=== PATIENT | female | born 1950 | race Caucasian/White ===

== ENCOUNTER 2020-03-08 08:56 | Inpatient (IN) | payer OTHER, MEDICAID, SELFPAY ==
[~2020-03-08] VITALS: Ht 157.5 cm; Wt 72.6 kg
[2020-03-08 08:56] VITALS: BP_SYST 136
--- NOTE | 2020-03-08 08:56 | NUR ---
PLACED IN BED 8, TRIAGED AT BEDSIDE
--- NOTE | 2020-03-08 09:00 | NUR ---
ER DR. PATINO EVALUATING PT AT THE BEDSIDE
--- NOTE | 2020-03-08 09:05 | NUR ---
PT BIBA FOR SOB, COUGH AND LOW O2 SAT AT HOME STARTING AROUND 0800. PT LIVES WITH FAMILY AND TESTED POSITIVE FOR COVID-19 ON 03/02/20. HX OF COPD, HTN, DM AND PER DAUGHTER A CARDIAC CONDITION. PT USES CPAP AT HOME. PT PRESENTS WITH NON-REBREATHER @ 15L O2 SAT ON ARRIVAL IS 95%. PT IS AAOX3
[2020-03-08] MEDS ORDERED: ALBMDI INH (09:18)
[2020-03-08] MEDS ORDERED: GLU850 PO (09:18)
[2020-03-08] MEDS ORDERED: OMEP20CA15 PO (09:18)
[2020-03-08] MEDS ORDERED: ALLO300T2 PO (09:18)
[2020-03-08] MEDS ORDERED: MECL-97 PO (09:18)
[2020-03-08] MEDS ORDERED: AMLO5TAB4 PO (09:18)
[2020-03-08] MEDS ORDERED: SIMV10TA2 PO (09:18)
[2020-03-08] MEDS ORDERED: AMI200 PO (09:18)
[2020-03-08] MEDS ORDERED: MONT10TA27 PO (09:18)
[2020-03-08] MEDS ORDERED: SYN50 PO (09:18)
--- NOTE | 2020-03-08 09:18 | NUR ---
Medication reconciliation completed with information provided by PT MEDICATION BOTTLES. Any prior medication reconciliation on file was reviewed and corrected.
--- NOTE | 2020-03-08 09:20 | NUR ---
LAB AT THE BEDSIDE FOR BLOOD DRAW
--- NOTE | 2020-03-08 09:25 | NUR ---
SW DAUGHTER LINUS NOLEN
--- NOTE | 2020-03-08 09:30 | NUR ---
PORTABLE X-RAY AT THE BEDSIDE
[2020-03-08 09:55] LABS: BASOPHILS # (AUTO) 0.1 K/uL (0.0-0.2); HEMOGLOBIN 12.8 g/dL (12.0-16.0); LYMPHOCYTES # (AUTO) 1.3 K/uL (1.0-5.5); MEAN CORPUSCULAR HGB CONC 33 % (32-36); MEAN CORPUSCULAR VOLUME 101 fL (79.0-98.0); RED CELL DISTRIBUTION WIDTH 14.5 % (9.0-15.0)
[2020-03-08 09:56] LABS: CALCIUM 8.6 mg/dL (8.4-11.0); CREATININE 1.89 mg/dL (0.55-1.30)
[2020-03-08 10:02] LABS: BASOPHILS % (AUTO) 1.1 % (0.0-2.0); HEMATOCRIT 39.2 % (36-48); LYMPHOCYTES % (AUTO) 15.7 % (20.5-51.5); MEAN CORPUSCULAR HEMOGLOBIN 33 pg (27-31); MONOCYTES # (AUTO) 0.4 K/uL (0.0-1.0); MONOCYTES % (AUTO) 5.2 % (1.7-9.3); NEUTROPHILS # (AUTO) 6.3 K/uL (1.8-7.7)
[2020-03-08 10:02] LABS: INR 1.1 (0.8-1.2)
[2020-03-08 10:07] LABS: ALBUMIN 2.9 g/dL (3.4-4.8); TOTAL BILIRUBIN 0.5 mg/dL (0.0-1.0)
[2020-03-08 10:16] LABS: C-REACTIVE PROTEIN QUANT 10.3 mg/dL (0-0.5)
--- NOTE | 2020-03-08 10:16 | NUR ---
COVID SWAB DONE AND SENT TO LAB
[2020-03-08 10:23] LABS: PLATELET COUNT (AUTO) 122 K/uL (130-430)
--- NOTE | 2020-03-08 10:42 | NUR ---
PT ABLE TO VOID, SPECIMEN COLLECTED AND SENT TO LAB
[2020-03-08] MEDS ORDERED: PIPERACILLIN/TAZOBACTAM 3.375 GM/VIAL (ZOSYN) IV ONE (10:43)
[2020-03-08 10:44] LABS: BILIRUBIN,URINE NEGATIVE (NEGATIVE); BLOOD, URINE 2+ (NEGATIVE); CLARITY/URINE SL CLOUDY (CLEAR); COLOR,URINE YELLOW (YELLOW); GLUCOSE,URINE NEGATIVE (NEGATIVE); KETONES,URINE TRACE (NEGATIVE); LEUKOCYTE ESTERASE ,URINE TRACE (NEGATIVE); NITRITE, URINE POSITIVE (NEGATIVE); PH,URINE 5.5 (5.0-8.0); PROTEIN URINE 2+ (NEGATIVE); UROBILINOGEN,URINE 0.2 (0.2-1.0)
[2020-03-08] MEDS ORDERED: VANCOMYCIN HCL 1,000 MG in NS 250 ML IV ONE (10:45)
[2020-03-08] MEDS ORDERED: PIPERACILLIN/TAZO 3.375 GM in NS 50 ML IV ONE (10:45)
[2020-03-08] MEDS ORDERED: NS 500 ML IV ONE (10:45)
[2020-03-08 11:03] LABS: BACTERIA,URINE MANY /HPF (None Seen); MUCUS,URINE 1+ /LPF (None Seen)
[2020-03-08] MEDS ORDERED: VANCOMYCIN HCL 1000 MG/VIAL IV ONE (11:21)
[2020-03-08] MEDS ORDERED: ENOXAPARIN SODIUM 60 MG/0.6 ML SYRINGE SUBCUT ONE (13:30)
[2020-03-08] MEDS ORDERED: ENOXAPARIN SODIUM 40 MG/0.4 ML SYRINGE SUBCUT SCH (14:00)
[2020-03-08] MEDS ORDERED: DOCUSATE SODIUM 100 MG CAPSULE PO PRN (14:00)
[2020-03-08] MEDS ORDERED: POTASSIUM CHLORIDE 20 MEQ TAB.PRT.SR PO PRN (14:00)
[2020-03-08] MEDS ORDERED: MAGNESIUM SULFATE 50 ML IV PRN (14:00)
[2020-03-08] MEDS ORDERED: ACETAMINOPHEN 325 MG TABLET PO PRN (14:00)
[2020-03-08] MEDS ORDERED: LORazepam 2 MG/ML VIAL IVP PRN (14:00)
[2020-03-08] MEDS ORDERED: MUPIROCIN 2% TOPICAL OINTMENT 22 GM NS PRN (14:00)
[2020-03-08] MEDS ORDERED: MORPHINE 2 MG/ML INJ. SYRINGE IVP PRN ×2 (14:00)
[2020-03-08] MEDS ORDERED: ONDANSETRON HCL 4 MG/2 ML VIAL IVP PRN (14:00)
[2020-03-08] MEDS ORDERED: DEXTROSE 50% JECT 50 ML DISP.SYRIN IVP PRN (14:00)
[2020-03-08] MEDS ORDERED: ZOLPIDEM TARTRATE 5 MG TABLET PO PRN (14:00)
[2020-03-08] MEDS: NACL 0.9% 1,000 ML IV SCH (14:19)
[2020-03-08] MEDS ORDERED: AZITHROMYCIN 500 MG in NS 250 ML IV ONE (14:30)
[2020-03-08] MEDS ORDERED: cefTRIAXone 1 GM VIAL ONE (14:43)
--- NOTE | 2020-03-08 15:15 | NUR ---
ASSUMED CARE OF PT.
--- NOTE | 2020-03-08 15:15 | NUR ---
REPORT GIVEN TO REJI GUTIERREZ FOR CONTINUING CARE
--- NOTE | 2020-03-08 15:24 | NUR ---
CONSULT: KENNEDI MCCRARY SPOKE WITH REBECCA REASON FOR CONSULT: COVID PNA
--- NOTE | 2020-03-08 15:29 | NUR ---
CONSULT: PAGED DR MONTEMAYOR REASON FOR CONSULT- COVID PNA
[2020-03-08] MEDS ORDERED: DECADRON 4 MG TABLET PO ONE (15:30)
[2020-03-08] MEDS ORDERED: ASCORBIC ACID 500 MG TABLET PO ONE (15:30)
[2020-03-08] MEDS ORDERED: CHOLECALCIFEROL (VITAMIN D3) 2,000 UNIT TABLET PO ONE (15:30)
[2020-03-08] MEDS ORDERED: cefTRIAXone 1 GM in D5W 50 ML IV ONE (15:30)
[2020-03-08] MEDS ORDERED: AZITHROMYCIN 500 MG/VIAL (ZITHROMAX) IV ONE (15:57)
--- NOTE | 2020-03-08 16:00 | NUR ---
PT. RESTING IN BED IN SEMI FOWLERS POSITION WITH BOTH SIDE RAILS UP
[2020-03-08] MEDS ORDERED: *LOVENOX 1MG/KG Q12H/PHARMACY XX ONE (16:30)
[2020-03-08] MEDS: MONTELUKAST 10 MG TABLET PO SCH (16:51)
--- NOTE | 2020-03-08 17:00 | NUR ---
CURRENT ACCU CHECK IS 110.
--- NOTE | 2020-03-08 17:00 | NUR ---
PT. NEEDS TO BE REMINDED TO KEEP HER O2 MASK ON PT. PLACED IN HIGH FOWLERS POSITION TO KEEP O2 SATURATION ABOVE 90% PT. TOLERATING WELL WITH BOTH SIDE RAILS UP
--- NOTE | 2020-03-08 18:36 | NUR ---
CONVALSECENT PLASMA CONSENT OBTAINED FROM THE PT'S DAUGHTER
[2020-03-08] MEDS: ALBUTEROL MDI INHALATION 8 GM INH INH SCH (19:00)
--- NOTE | 2020-03-08 21:33 | NUR ---
FFP BEGAN ON PT. VERIFIED AT BEDSIDE WITH REJI GUTIERREZ
--- NOTE | 2020-03-08 21:48 | NUR ---
PT. TOLERATING FFP INFUSION WELL WITH NO REACTION VITALS STABLE AND WNL
--- NOTE | 2020-03-08 22:33 | NUR ---
PT. TOLERATING FFP INFUSION VITALS WNL
--- NOTE | 2020-03-09 00:08 | NUR ---
1 UNIT FFP TRANSFUSION COMPLETE PT. TOLERATED WELL IN BED WITH BOTH SIDE RAILS UP IN LOWEST POSITION
--- NOTE | 2020-03-09 00:32 | NUR ---
FFP UINT 2 OF 2 STARTED PT. TOLERATING WELL WILL CONTINUE TO MONITOR
--- NOTE | 2020-03-09 00:48 | NUR ---
PT. TOLERATING UNIT 2 OF 2 OF FFP TRANSFUSION VITALS WNL PT. IN BED IN LOWEST POSITION WIHT SIDE RAILS UP WILL CONTINUE TO MONITOR
--- NOTE | 2020-03-09 02:00 | NUR ---
Ava balderas in [facility] - 03/09/20 at 1439 by [email or web address] PT PROVED WITH LUNCH TRAY, EATING IN BED
--- NOTE | 2020-03-09 02:43 | NUR ---
UNIT 2 OF 2 FFP COMPLETE PT. TOLERATED WELL ADN VITALS SIGNS WNL
--- NOTE | 2020-03-09 03:02 | NUR ---
BEDSIDE PT. REPORT GIVEN TO SOFTWARE IMPLEMENTATION PROJECT MANAGER MAY
--- NOTE | 2020-03-09 04:48 | NUR ---
Patient resting quietly. No acute distress noted.
--- NOTE | 2020-03-09 06:47 | NUR ---
BS 181, given 2 unit sc and provided bedside commode.
--- NOTE | 2020-03-09 07:09 | NUR ---
Care of patient endorsed to REJI Davila.
--- NOTE | 2020-03-09 07:11 | NUR ---
REPORT RECEIVED FROM REJI PINTO FOR CONTINUING CARE
[2020-03-09] MEDS: LEVOTHYROXINE SODIUM 0.05 MG TABLET PO SCH (07:29)
[2020-03-09] MEDS: NACL 0.9% 1,000 ML IV SCH ×2 (07:30→18:56)
[2020-03-09] MEDS: ALBUTEROL MDI INHALATION 8 GM INH INH SCH ×2 (07:30→18:57)
[2020-03-09] MEDS ORDERED: AZITHROMYCIN 250 MG TABLET PO SCH (09:00)
[2020-03-09] MEDS ORDERED: ENOXAPARIN SODIUM 40 MG/0.4 ML SYRINGE SUBCUT SCH (09:00)
--- NOTE | 2020-03-09 09:00 | NUR ---
PT PROVIDED WITH BREAKFAST TRAY,EATING IN BED
[2020-03-09 09:01] LABS: CALCIUM 8.3 mg/dL (8.4-11.0); CREATININE 1.42 mg/dL (0.55-1.30); POTASSIUM 4.8 mmol/L (3.5-5.1)
[2020-03-09 09:15] LABS: C-REACTIVE PROTEIN QUANT 8.2 mg/dL (0-0.5)
[2020-03-09] MEDS: AMIODARONE HCL 200 MG TABLET PO SCH (09:58)
[2020-03-09] MEDS: ALLOPURINOL 300 MG TABLET (ZYLOPRIM) PO SCH (09:59)
[2020-03-09] MEDS: ASCORBIC ACID 500 MG TABLET PO SCH (09:59)
[2020-03-09] MEDS: amLODIPine BESYLATE 5 MG TABLET PO SCH (10:00)
[2020-03-09] MEDS: SIMVASTATIN 10 MG TABLET PO SCH (10:01)
[2020-03-09] MEDS: CHOLECALCIFEROL (VITAMIN D3) 2,000 UNIT TABLET PO SCH (10:01)
--- NOTE | 2020-03-09 14:00 | NUR ---
PT PROVIDED WITH LUNCH TRAY,EATING IN BED
[2020-03-09] MEDS: DECADRON 4 MG TABLET PO SCH (16:22)
[2020-03-09] MEDS: ENOXAPARIN SODIUM 80 MG/0.8 ML SYRINGE SUBCUT SCH (16:24)
[2020-03-09] MEDS: cefTRIAXone 1 GM in D5W 50 ML IV SCH (16:25)
[2020-03-09] MEDS: INSULIN LISPRO SLIDING SCALE 100 UNITS/ML VIAL (humaLOG) SUBCUT PRN ×2 (17:27→21:47)
--- NOTE | 2020-03-09 17:30 | NUR ---
PT PROVIDED WITH DINNER TRAY
[2020-03-09] MEDS: MONTELUKAST 10 MG TABLET PO SCH (18:55)
[2020-03-09] MEDS: AZITHROMYCIN 500 MG in NS 250 ML IV SCH (18:56)
--- NOTE | 2020-03-09 19:26 | NUR ---
REPORT GIVEN TO REJI HARVEY FOR CONTINUING CARE
--- NOTE | 2020-03-09 20:07 | NUR ---
Patient will be admitted to care of Dr merino. Admitted to tele unit. Will go to room 124a. Belongings list completed. Complete and up to date summary report printed. SBAR report to be given at bedside with opportunity for questions.
--- NOTE | 2020-03-09 20:30 | NUR ---
ADMISSION NOTE: Received patient from ER via gurney. Patient admitted with diagnosis of shortness of breath and cough. Patient is awake, alert, oriented X 3. Patient oriented to hospital room, call light, toileting, pain management and safety-teach back done.Personal belongings checked and Belongings List documented. Call light within reach.
--- NOTE | 2020-03-09 21:30 | NUR ---
MED PASS: SCHEDULED MED GIVEN TO PATIENT. TOLERATED WELL. BLOOD GLUCOSE IS 152 MG/dL. PATIENT REFUSED INSULIN. EDUCATED PATIENT REGARDING S/S HYPO AND HYPERGLYCEMIA. CALL LIGHT IS WITHIN PATIENT REACH. SAFETY AND FALL PRECAUTIONS IN PLACE. INSTRUCTED PATIENT TO USE CALL LIGHT FOR AEROSPACE ASSEMBLER. WILL MONITOR.
[2020-03-09 22:34] VITALS: BP_SYST 132
--- NOTE | 2020-03-09 23:00 | NUR ---
RN ROUNDS: PATIENT ASSISTED WITH BEDPAN. NO S/S RESPIRATORY DISTRESS NOTED AT THIS TIME. WILL MONITOR PATIENT FOR ANY CHANGES.
[2020-03-10] VITALS (12 sets, daily range): BP systolic 117–140
--- NOTE | 2020-03-10 00:18 | NUR ---
DR. MONTEMAYOR PAGED DR. MONTEMAYOR PAGED AT THIS TIME ON PAGER
--- NOTE | 2020-03-10 00:20 | NUR ---
SPOKE TO DR. SALVADOR. NEW ORDER RECEIVED. WILL CARRY OUT. Addendum: 03/10/20 at 0807 by Sheila Dewitt RN NOTIFIED MD THAT PT IS 100% NON-REBREATHER SATING LOW 90S. REQUESTED ORDER TO TRANSFER PT TO ICU. MD ORDER TO KEEP PT SATURATION ABOVE 90% (NO ORDER TO TRANSFER TO ICU AT THIS TIME).
--- NOTE | 2020-03-10 00:30 | NUR ---
PATIENT MOVED TO ROOM 134 B. OXYGEN SATURATION IS DROPPING ON HIGH FLOW. RT PUT PT BACK ON NON-REBREATHER. O2 SAT IS AT 91-92%. WILL MONITOR PATIENT.
--- NOTE | 2020-03-10 00:40 | NUR ---
Pt. to be put on HFNC per Dr. Woodard verbal order. Pt. initiated on therapy @0100, SpO2 reading decreased to 84% while on HFNC set on 100% FIO2 and a flow of 40Lpm. Pt. placed back on NRB and repositioned to left side. SpO2 reading is now 91% with no acute resp distress noted. Will continue to monitor.
--- NOTE | 2020-03-10 02:15 | NUR ---
RN ROUNDS: PATIENT IS SLEEPING. NO S/S ACUTE DISTRESS NOTED. IVF INFUSING ORDERED RATE. CALL LIGHT IS WITH PATIENT. WILL CONTINUE TO MONITOR.
--- NOTE | 2020-03-10 04:15 | NUR ---
RN ROUNDS: PATIENT ASSISTED WITH BEDPAN. RESPIRATION IS EVEN AND UNLABORED ON NON-REBREATHER. IVF INFUSING ORDERED RATE. CALL LIGHT IS WITH PATIENT. WILL MONITOR PATIENT.
[2020-03-10] MEDS: INSULIN LISPRO SLIDING SCALE 100 UNITS/ML VIAL (humaLOG) SUBCUT PRN ×4 (06:30→20:38)
[2020-03-10] MEDS: LEVOTHYROXINE SODIUM 0.05 MG TABLET PO SCH (06:30)
--- NOTE | 2020-03-10 06:30 | NUR ---
CLOSING NOTE: PATIENT GIVEN SCHEDULED MORNING MED. BG IS 183. 2 UNITS OF INSULIN ADMINISTERED. NO S/S ACUTE DISTRESS NOTED AT THIS TIME. RESPIRATION IS UNLABORED AND SYMMETRICAL ON 15 L OF NON-REBREATHER. MORNING HYGIENE CARE PERFORMED . PATIENT TOLERATED WELL. ALL NEEDS MET. WILL ENDORSE PATIENT CARE TO DAY SHIFT RN.
[2020-03-10] MEDS: ALBUTEROL MDI INHALATION 8 GM INH INH SCH ×2 (07:00→18:51)
--- NOTE | 2020-03-10 07:15 | NUR ---
Patient O2 sat is dropping. called . new ordered received. will carry out.
--- NOTE | 2020-03-10 07:35 | NUR ---
PULMO ROOF TECHNICIAN DR COPELAND WAS PAGED DIRECTLY RE: PT IS DESATING EVEN OF HIGH FLOW.
--- NOTE | 2020-03-10 07:45 | NUR ---
Opening Notes/Rapid Response/Transfer to ICU Patients is laying in bed, alert and oriented x4. Pt is noted with labored breathing and low oxygen saturation while on non rebreather @ 100%. Respirations at 40. Respiratory team was called and gave the patient her inhaler as ordered, tolerated well. Obtained new orders from Dr. Valente: STAT ABG, CXRAY, and BiPAP. RT placed the patient on BiPAP (O2 100%, RATE 30 IPAP 13 EPAP 5). New orders to transfer patient to ICU. IV site on right AC, 20 gauge intact at this time, saline lock. All needs met. Will continue to monitor.
[2020-03-10 08:00] LABS: CALCIUM 8.4 mg/dL (8.4-11.0); CREATININE 1.2 mg/dL (0.55-1.30); POTASSIUM 4.6 mmol/L (3.5-5.1)
[2020-03-10 08:03] LABS: BASOPHILS % (AUTO) 0.2 % (0.0-2.0); HEMATOCRIT 37.9 % (36-48); HEMOGLOBIN 12.2 g/dL (12.0-16.0); LYMPHOCYTES # (AUTO) 1.1 K/uL (1.0-5.5); LYMPHOCYTES % (AUTO) 12.1 % (20.5-51.5); MEAN CORPUSCULAR HEMOGLOBIN 33 pg (27-31); MEAN CORPUSCULAR HGB CONC 32 % (32-36); MEAN CORPUSCULAR VOLUME 102 fL (79.0-98.0); MONOCYTES # (AUTO) 1.1 K/uL (0.0-1.0); MONOCYTES % (AUTO) 11.5 % (1.7-9.3); NEUTROPHILS # (AUTO) 7.2 K/uL (1.8-7.7); NEUTROPHILS % (AUTO) 76.2 % (40.0-70.0); PLATELET COUNT (AUTO) 132 K/uL (130-430); RED BLOOD CELL COUNT(AUTO) 3.73 MIL/uL (4.2-6.2); RED CELL DISTRIBUTION WIDTH 14.6 % (9.0-15.0); WHITE BLOOD COUNT (AUTO) 9.5 K/uL (4.8-10.8)
[2020-03-10 08:30] LABS: C-REACTIVE PROTEIN QUANT 4.2 mg/dL (0-0.5)
[2020-03-10] MEDS: SIMVASTATIN 10 MG TABLET PO SCH (09:00)
[2020-03-10] MEDS: CHOLECALCIFEROL (VITAMIN D3) 2,000 UNIT TABLET PO SCH (09:00)
[2020-03-10] MEDS: ALLOPURINOL 300 MG TABLET (ZYLOPRIM) PO SCH (09:00)
[2020-03-10] MEDS: NACL 0.9% 1,000 ML IV SCH ×2 (09:00→23:09)
[2020-03-10] MEDS: ASCORBIC ACID 500 MG TABLET PO SCH (09:00)
[2020-03-10] MEDS: AMIODARONE HCL 200 MG TABLET PO SCH (09:00)
[2020-03-10] MEDS: amLODIPine BESYLATE 5 MG TABLET PO SCH (09:00)
[2020-03-10 10:39] LABS: ERYTHROCYTE SEDIMENTATION RATE 74 MM/HR (0-20)
--- NOTE | 2020-03-10 11:30 | NUR ---
Blood Sugar Patients BS was noted at 180 mg/dL. Per sliding scale, administered 2 units of Lispro insulin, tolerated well. Will continue to monitor.
--- NOTE | 2020-03-10 12:00 | NUR ---
Notes/Titrated O2 to 80% RT reduced patients BiPAP O2 setting to 80%, tolerated well. Patient is still noted with labored breathing at this time, use of accessory muscles. Respirations at 28/min. Patient is alert and oriented x4, noted to be lethargic. All needs met at this time. Will continue to monitor.
--- NOTE | 2020-03-10 13:40 | NUR ---
Patient is being seen and examined by DR. COPELAND
[2020-03-10] MEDS: ENOXAPARIN SODIUM 80 MG/0.8 ML SYRINGE SUBCUT SCH (14:43)
[2020-03-10] MEDS ORDERED: REMDESIVIR 200 MG in NS 250 ML IV ONE (15:00)
--- NOTE | 2020-03-10 15:02 | NUR ---
Gave report to REJI Gregg for continuity of care
--- NOTE | 2020-03-10 15:16 | NUR ---
CRITICAL LAB Received critical lab: UA positive: E Coli, MDRO. Endorsed to Cristino. REJI. Paged Dr. Kerr/Dr. Santo, awaiting callback.
[2020-03-10] MEDS: DECADRON 4 MG TABLET PO SCH ×2 (16:39→16:43)
[2020-03-10] MEDS: cefTRIAXone 1 GM in D5W 50 ML IV SCH ×2 (16:39→16:44)
[2020-03-10] MEDS: MONTELUKAST 10 MG TABLET PO SCH (17:09)
[2020-03-10] MEDS: AZITHROMYCIN 500 MG in NS 250 ML IV SCH (17:11)
--- NOTE | 2020-03-10 19:58 | NUR ---
MD KENNEDI WIN [phone] SPOKE WITH ARLENE
[2020-03-11] VITALS (24 sets, daily range): BP systolic 97–173
[2020-03-11] MEDS: LEVOTHYROXINE SODIUM 0.05 MG TABLET PO SCH (06:06)
[2020-03-11] MEDS: INSULIN LISPRO SLIDING SCALE 100 UNITS/ML VIAL (humaLOG) SUBCUT PRN ×4 (06:08→21:41)
[2020-03-11 06:25] LABS: HEMATOCRIT 34.6 % (36-48); HEMOGLOBIN 11.2 g/dL (12.0-16.0); LYMPHOCYTES # (AUTO) 0.8 K/uL (1.0-5.5); LYMPHOCYTES % (AUTO) 7.9 % (20.5-51.5); MEAN CORPUSCULAR HEMOGLOBIN 32 pg (27-31); MEAN CORPUSCULAR HGB CONC 32 % (32-36); MEAN CORPUSCULAR VOLUME 100 fL (79.0-98.0); MONOCYTES # (AUTO) 0.9 K/uL (0.0-1.0); MONOCYTES % (AUTO) 8.7 % (1.7-9.3); NEUTROPHILS # (AUTO) 8.6 K/uL (1.8-7.7); NEUTROPHILS % (AUTO) 83.4 % (40.0-70.0); PLATELET COUNT (AUTO) 140 K/uL (130-430); RED BLOOD CELL COUNT(AUTO) 3.44 MIL/uL (4.2-6.2); RED CELL DISTRIBUTION WIDTH 14.4 % (9.0-15.0); WHITE BLOOD COUNT (AUTO) 10.4 K/uL (4.8-10.8)
[2020-03-11 06:45] LABS: CALCIUM 8.1 mg/dL (8.4-11.0); CREATININE 1.14 mg/dL (0.55-1.30); POTASSIUM 4.4 mmol/L (3.5-5.1)
--- NOTE | 2020-03-11 07:31 | NUR ---
Nutrition Update Curt Scale 18 noted. Pt admitted for COVID-19 Pneumonia Diet: [facility] BMI: 31.2 kg/m2 RD to follow per nutrition care standards.
--- NOTE | 2020-03-11 08:00 | NUR ---
AM ASSESSMENT. PT LEANING TO THE SIDE OF THE BED, ENCOURAGED TO MOVE HERSELF HIGHER UP IN BED, ON O2 VIA BIPAP, ASSESSED FOR PAIN, PT DENIES, ASSESSED URINARY URGENCY, PT DECLINED TO USE THE BEDPAN.
[2020-03-11 08:39] LABS: C-REACTIVE PROTEIN QUANT 2.8 mg/dL (0-0.5)
[2020-03-11] MEDS: AMIODARONE HCL 200 MG TABLET PO SCH ×2 (09:00→09:03)
[2020-03-11] MEDS: ALLOPURINOL 300 MG TABLET (ZYLOPRIM) PO SCH ×2 (09:00→09:02)
[2020-03-11] MEDS: ASCORBIC ACID 500 MG TABLET PO SCH ×2 (09:00→09:03)
[2020-03-11] MEDS: CHOLECALCIFEROL (VITAMIN D3) 2,000 UNIT TABLET PO SCH ×2 (09:00→09:03)
[2020-03-11] MEDS: SIMVASTATIN 10 MG TABLET PO SCH ×2 (09:00→09:03)
[2020-03-11] MEDS: amLODIPine BESYLATE 5 MG TABLET PO SCH ×2 (09:00→09:02)
[2020-03-11 09:34] LABS: ERYTHROCYTE SEDIMENTATION RATE 73 MM/HR (0-20)
[2020-03-11] MEDS: ALBUTEROL MDI INHALATION 8 GM INH INH SCH (10:16)
--- NOTE | 2020-03-11 11:00 | NUR ---
Obey PT CALLED FOR HELP, STATED "POO POO", BEDPAN PROVIDED AND GAVE PT AMPLE TIME TO COMPLETE HER BUSINESS, SHE ONLY PASSED URINE, PERINEAL CARE DONE, MADE PT CLEAN AND DRY. PT REMAIN'S ON BIPAP, VERY TIRED LOOKING AFTER SHE TURNED TO THE SIDE.
[2020-03-11] MEDS: NACL 0.9% 1,000 ML IV SCH (11:42)
[2020-03-11] MEDS: ENOXAPARIN SODIUM 80 MG/0.8 ML SYRINGE SUBCUT SCH (13:34)
--- NOTE | 2020-03-11 15:18 | NUR ---
Dietitian Recommendations *Recommend: keep NPO. *Recommend: initiate PPN support. Please see Nutritional Assessment for details. KERRY GOLDSMITH
[2020-03-11] MEDS: cefTRIAXone 1 GM in D5W 50 ML IV SCH (16:21)
[2020-03-11] MEDS: DECADRON 4 MG TABLET PO SCH (17:06)
--- NOTE | 2020-03-11 17:06 | NUR ---
PO MEDS. BROUGHT IN DECADRON TABS, OFFERED PT TO DRINK WATER, TOOK THE STRAW AND HAD FEW SIPS, PT ABLE TO TOLERATE, AND WENT TO GET HER NAP.
[2020-03-11] MEDS: MONTELUKAST 10 MG TABLET PO SCH (17:55)
[2020-03-11] MEDS: AZITHROMYCIN 500 MG in NS 250 ML IV SCH (17:56)
--- NOTE | 2020-03-11 19:30 | NUR ---
Opening note Received report and assumed care. Patient in isolation for covid 19. On bipap 100% O2 and using accessory muscles to breathe. HR 130 and BP with tendency to drop below 90 Systolic, O2 sats 90. Patient was repositioned as close as possible to prone but still not improving. Patient is anxious and may requires medication to help calm her down. will continue to monitor.
--- NOTE | 2020-03-11 20:15 | NUR ---
Repositioned for comfort but continues to be restless and anxious. Assessment completed.
--- NOTE | 2020-03-11 21:30 | NUR ---
Ativan 1 mg IVP given as per JUN PRN. will continue to monitor.
[2020-03-11] MEDS ORDERED: NOREPINEPHRINE 4 MG/4 ML VIAL IV ONE (22:33)
--- NOTE | 2020-03-11 22:37 | NUR ---
PAGED DR. CAMPOS PAGER [phone]
--- NOTE | 2020-03-11 22:40 | NUR ---
Dr Alfaro contacted to report patient status. Patient very anxious using accessory muscles, RR 50, BP low 80's systolic and O2 sats 85%.Patient is fatigued and Ativan did not help. Orders received to intubate patient. MD in ER was contacted.
--- NOTE | 2020-03-11 22:45 | NUR ---
Called to assist in intubation of patient. At bedside preparing intubation for Dr. Rivera. Pt. successfully intubated @ 2300 with a 7.5 ETT @ 24cm Lip. After CXR done, ETT pulled up 2cm, no sits @ 22cm Lip.
--- NOTE | 2020-03-11 23:00 | NUR ---
Intubation ER MD at bedside along with RT team. Patient was put under sedation using Etomidate and succinilcholine. Patient was then intubated with 7.5 ETT . Post intubation, patient continued to saturate low 70's. CXR post intubation completed. Correction in ETT distance corrected to 22 cm to lip. Patient's O2 sats improved.
[2020-03-11] MEDS ORDERED: LORazepam 2 MG/ML VIAL ONE (23:12)
[2020-03-11] MEDS ORDERED: fentaNYL CITRATE/PF 100 MCG/2 ML AMP ONE (23:15)
--- NOTE | 2020-03-11 23:15 | NUR ---
Propofol started but patient continues to be restless. Ativan 2 mg ivp given as per MD orders and Fentanyl 100 mcg IVP given to help tolerating vent.
[2020-03-12] VITALS (33 sets, daily range): BP systolic 82–151
--- NOTE | 2020-03-12 | NUR ---
Assessment completed. Patient repositioned for comfort.
[2020-03-12] MEDS ORDERED: fentaNYL CITRATE/PF 100 MCG/2 ML AMP IVP ONE (00:15)
[2020-03-12] MEDS ORDERED: LORazepam 2 MG/ML VIAL IVP ONE (00:15)
[2020-03-12] MEDS: NACL 0.9% 1,000 ML IV SCH ×2 (03:48→22:00)
[2020-03-12] MEDS: PROPOFOL DRIP 100 ML IV PRN ×2 (06:21→08:07)
[2020-03-12] MEDS: LEVOTHYROXINE SODIUM 0.05 MG TABLET PO SCH (06:30)
[2020-03-12 06:34] LABS: BASOPHILS # (AUTO) 0.1 K/uL (0.0-0.2); BASOPHILS % (AUTO) 0.6 % (0.0-2.0); EOSINOPHILS # (AUTO) 0.3 K/uL (0.0-0.4); HEMATOCRIT 31.7 % (36-48); HEMOGLOBIN 10.4 g/dL (12.0-16.0); LYMPHOCYTES # (AUTO) 1.1 K/uL (1.0-5.5); LYMPHOCYTES % (AUTO) 6.7 % (20.5-51.5); MEAN CORPUSCULAR HEMOGLOBIN 34 pg (27-31); MEAN CORPUSCULAR HGB CONC 33 % (32-36); MEAN CORPUSCULAR VOLUME 102 fL (79.0-98.0); MONOCYTES # (AUTO) 0.8 K/uL (0.0-1.0); MONOCYTES % (AUTO) 4.9 % (1.7-9.3); NEUTROPHILS % (AUTO) 85.8 % (40.0-70.0); PLATELET COUNT (AUTO) 198 K/uL (130-430); RED CELL DISTRIBUTION WIDTH 15.1 % (9.0-15.0); WHITE BLOOD COUNT (AUTO) 16.3 K/uL (4.8-10.8)
[2020-03-12 07:09] LABS: ALBUMIN 2.5 g/dL (3.4-4.8); CALCIUM 8.1 mg/dL (8.4-11.0); CREATININE 1.5 mg/dL (0.55-1.30); POTASSIUM 5.5 mmol/L (3.5-5.1); TOTAL BILIRUBIN 0.8 mg/dL (0.0-1.0)
--- NOTE | 2020-03-12 07:11 | NUR ---
Opening note Received report from NOC RN. All cares assumed, patient in bed in lowest locked position.
--- NOTE | 2020-03-12 08:00 | NUR ---
Diprivan infusing at 25 mcgs/kg/min.
--- NOTE | 2020-03-12 08:00 | NUR ---
RT AC PIV: RIGHT AC PIV D/C, UNABLE TO FLUSH.
[2020-03-12] MEDS: ALBUTEROL MDI INHALATION 8 GM INH INH SCH ×2 (08:08→20:00)
[2020-03-12 08:13] LABS: ERYTHROCYTE SEDIMENTATION RATE 28 MM/HR (0-20)
[2020-03-12] MEDS ORDERED: SUCCINYLCHOLINE CHLORIDE 20 MG/ML(QUELICIN) IVP ONE (08:37)
[2020-03-12] MEDS ORDERED: ETOMIDATE 20 MG/ 10 ML VIAL (AMIDATE) IVP ONE (08:37)
[2020-03-12 08:41] LABS: C-REACTIVE PROTEIN QUANT 3.4 mg/dL (0-0.5)
--- NOTE | 2020-03-12 08:45 | NUR ---
Witnessed diprivan infusing at 30 mcgs/kg/min.
[2020-03-12] MEDS ORDERED: EPINEPHrine JECT 0.1 MG/ML SYR IVP ONE (08:57)
[2020-03-12] MEDS: CHOLECALCIFEROL (VITAMIN D3) 2,000 UNIT TABLET PO SCH (09:04)
[2020-03-12] MEDS: SIMVASTATIN 10 MG TABLET PO SCH (09:04)
[2020-03-12] MEDS: AMIODARONE HCL 200 MG TABLET PO SCH (09:04)
[2020-03-12] MEDS: amLODIPine BESYLATE 5 MG TABLET PO SCH (09:04)
[2020-03-12] MEDS: ASCORBIC ACID 500 MG TABLET PO SCH (09:04)
[2020-03-12] MEDS: ALLOPURINOL 300 MG TABLET (ZYLOPRIM) PO SCH (09:05)
--- NOTE | 2020-03-12 09:07 | NUR ---
FAMILY: SPOKE WITH DAUGHTER ON PHONE, VERBAL UPDATE GIVEN. NO QUESTIONS AND OR CONCERNS AT THIS TIME.
--- NOTE | 2020-03-12 09:15 | NUR ---
PICC CONSENT: 2 RN'S VERIFIED CONSENT GIVEN BY DAUGHTER OVER THE PHONE FOR PICC LINE PLACEMENT.
--- NOTE | 2020-03-12 09:40 | NUR ---
MD COPELAND: AT BEDSIDE, NEW ORDERS RC'VD FOR PICC LINE AND PRONING PATIENT
--- NOTE | 2020-03-12 09:45 | NUR ---
PAMELA DIET: PER DR. COPELAND DIETARY TO MAKE RECOMMENDATION FOR TUBE FEEDING, DIETARY AWARE. PENDING RECOMMENDATION AT THIS TIME.
[2020-03-12] MEDS ORDERED: methylPREDNISolone SOD SUCC 40 MG/ML VIAL IVP ONE (10:15)
[2020-03-12] MEDS ORDERED: methylPREDNISolone SOD SUCC/PF 62.5 MG/ML VIAL ONE (10:18)
--- NOTE | 2020-03-12 10:51 | NUR ---
Witnessed diprivan infusing at 35 mcgs/kg/min.
--- NOTE | 2020-03-12 10:58 | NUR ---
NG TUBE: 16F NG TUBE INSERTED INTO RIGHT NARE PER ORDER, PENDING PLACEMENT VERIFICATION FROM X-RAY
[2020-03-12] MEDS: methylPREDNISolone SOD SUCC 40 MG/ML VIAL IVP SCH ×3 (11:10→23:32)
--- NOTE | 2020-03-12 11:28 | NUR ---
MRSA: SWAB COLLECTED AND SENT TO LAB
--- NOTE | 2020-03-12 11:30 | NUR ---
RT NOTES PEEP to [address] Valente's order. Will monitor pt.
--- NOTE | 2020-03-12 11:50 | NUR ---
PICC NURSE: PICC NURSE AT BEDSIDE, ALL SUPPLIES GIVEN.
--- NOTE | 2020-03-12 11:55 | NUR ---
Nutrition F/U Admitting Diagnosis COVID-19 Pneumonia Reviewed Pertinent Medical/Surgical Hx Medical Record Medical History Comment: COVID-19 Pneumonia, Sepsis 2/2 UTI, VMN, Acute Respiratory Distress per MD notes. PMH: DM, HTN, Hypothyroidism. SARS-CoV-2 Rapid 03/08 Positive Subjective Information Pt is in ICU COVID-[address] RD visit was deferred d/t lack of PPE. RD received call from pt's primary RN today at 11:50, who stated pt is intubated yesterday, on vent, and sedated, w/ propofol infusing at 15.2 ml/hr (402 kcal/day). Per RN, pt is a/w to start on TF per MD. RD reviewed pt's current EMR record including diet hx, MD notes, RN notes, pertinent labs/meds/procedures, care trends, and care activity. Noted pt also on vasopressors per EMR. D/t pt now intubated, sedated, on pressors, and on vent, RD will re-adjust pt's estimated kcal and protein needs. Recommend: TF Vital HP at 45 ml/hr (goal rate) to provide protein repletion while avoid overfeeding pt on vent. Will adjust TF goal rate according to propofol infusion rate. Will continue monitor. RN acknowledged RD's recommendations and verbalized understanding. Current Diet Order/Nutrition Support No Diet Order, NPO per RN Pertinent Medications Solumedrol, Norepinephrine, Propofol (15.2 ml/hr; 402 kcal/day), Vit D3, Vit C, Zinc Sulfate, Insulin Lispro Pertinent Labs Na 149H, BG 196H, BUN/Cr 45H/1.50H, POC BG 201-232H Skin Integrity Comment: Curt scale: 16. No PIs noted. Bilateral generalized 1+ non pitting edema per care giver Current % PO NPO per RN NEW Estimated Energy Expenditure (kcals/day) 7584-0621 Kcal/day (22-25 kcal/kg ABW for critical illness, on vent and pressors, BMI < 30) NEW Estimated Protein Required (g/day) 87-145gm/day (1.2-2 gm/kg ABW for critical illness, on vent, BMI < 30) NEW Estimated Fluid Required (l/day) 6786-2570/day (1ml/kcal/day for maintenance) Problem/Etiology/Signs/Symptoms Inadequate PO intake r/t pulmonary dysfunction, intubation, NPO status AEB pt intubated 03/11, sedated, on vent, and NPO, a/w EN initiation per MD. *modified 03/12 Altered nutrition related labs r/t endcorine dysfunction AEB elevated BG *ongoing Expected Outcomes/Goals Monitor initiation and tolerance of EN support w/ goal of pt meeting more than 75% of estimated nutritional needs, labs trending WNL, normal GI function, skin integrity/wt maintenance. Dietitian Recommendations *Recommend: keep NPO. *Recommend: TF Vital High Protein at goal rate of 45 ml/hr. FWF per physician. Provides: 1080 kcal, 95 g protein, 903 ml free H2O via EN regimen alone. TF w/ propofol will provide: 1482 kcal, 95 g protein, 903 ml free H2O, meeting 93% of lower end estimated kcal needs, 109% of lower end estimated protein needs) *Will adjust TF goal rate according to propofol infusion rate. Follow Up High Risk: F/U in 2-3days
--- NOTE | 2020-03-12 11:56 | NUR ---
DR. BERMEO: MD AT BEDSIDE, VERBAL UPDATE GIVEN. NO NEW ORDERS.
[2020-03-12] MEDS: INSULIN LISPRO SLIDING SCALE 100 UNITS/ML VIAL (humaLOG) SUBCUT PRN ×3 (12:10→22:26)
--- NOTE | 2020-03-12 12:31 | NUR ---
Dietitian Recommendations *Recommend: keep NPO. *Recommend: TF Vital High Protein at goal rate of 45 ml/hr. FWF per physician. Provides: 1080 kcal, 95 g protein, 903 ml free H2O via EN regimen alone. TF w/ propofol will provide: 1482 kcal, 95 g protein, 903 ml free H2O, meeting 93% of lower end estimated kcal needs, 109% of lower end estimated protein needs) *Will adjust TF goal rate according to propofol infusion rate. Please see Nutrition F/U for details. EP,RD
--- NOTE | 2020-03-12 13:00 | NUR ---
Witnessed diprivan infusing at 40 mcgs/kg/min.
--- NOTE | 2020-03-12 13:30 | NUR ---
Witnessed diprivan infusing at 45 mcgs/kg/min.
--- NOTE | 2020-03-12 13:50 | NUR ---
RT NOTED Abnormal/labored breathing noted, saturation low 80s. ETT remains secure/patent. FIO2 to 100%, no improvement noted. @1410 Pt's breathing even, no distress noted, saturation 98%, FIO2 to 0.90. Will monitor pt.
[2020-03-12] MEDS ORDERED: MORPHINE I.V. DRIP 100 ML IV PRN (14:00)
[2020-03-12] MEDS ORDERED: NALOXONE HCL 0.4 MG/ML AMP (NARCAN) IVP PRN (14:00)
--- NOTE | 2020-03-12 14:00 | NUR ---
Witnessed diprivan infusing at 50 mcgs/kg/min.
[2020-03-12] MEDS ORDERED: MORPHINE I.V. DRIP 100 ML IV ONE (14:04)
[2020-03-12] MEDS ORDERED: MIDAZOLAM HCL IN 0.9 % NACL/PF 50 ML IV ONE (14:05)
--- NOTE | 2020-03-12 14:05 | NUR ---
Witnessed Versed drip infusing at 1 mg/hr
--- NOTE | 2020-03-12 14:21 | NUR ---
MD COPELAND: NEW ORDERS RC'VD FROM , MORPHINE AND VERSED. ADMINISTER FOR RESPIRATORY DISTRESS PER PROTOCOL, CHARGE AWARE.
--- NOTE | 2020-03-12 14:25 | NUR ---
SEDATION: PATIENT STARTED ON VERSED AND MORPHINE FOR RESPIRATORY DISTRESS.
--- NOTE | 2020-03-12 14:26 | NUR ---
Witnessed Versed drip infusing at 2 mg/hr
--- NOTE | 2020-03-12 14:26 | NUR ---
Witnessed morphine drip infusing at 2 mg/hr.
--- NOTE | 2020-03-12 14:26 | NUR ---
Witnessed morphine drip infusing at 1 mg/hr.
[2020-03-12] MEDS: ENOXAPARIN SODIUM 80 MG/0.8 ML SYRINGE SUBCUT SCH (14:58)
--- NOTE | 2020-03-12 15:00 | NUR ---
Witnessed morphine drip infusing at 3mg/hr.
--- NOTE | 2020-03-12 15:00 | NUR ---
Witnessed Versed drip infusing at 3 mg/hr
--- NOTE | 2020-03-12 15:00 | NUR ---
Witnessed diprivan infusing at 45 mcgs/kg/min.
--- NOTE | 2020-03-12 15:30 | NUR ---
Witnessed Versed drip infusing at 4mg/hr.
--- NOTE | 2020-03-12 15:30 | NUR ---
Witnessed morphine drip infusing at 4 mg/hr.
[2020-03-12] MEDS: MIDAZOLAM HCL IN 0.9 % NACL/PF 50 ML IV PRN ×2 (15:33→16:45)
[2020-03-12] MEDS: MORPHINE I.V. DRIP 100 ML IV PRN ×2 (15:35→23:27)
--- NOTE | 2020-03-12 16:00 | NUR ---
RT NOTES Assisted in proning pt, ETT remains secure/patent. No resistance noted when sxn catheter was advanced.
--- NOTE | 2020-03-12 16:00 | NUR ---
Witnessed morphine drip infusing at 5 mg/hr.
--- NOTE | 2020-03-12 16:00 | NUR ---
Witnessed diprivan infusing at 40 mcgs/kg/min.
--- NOTE | 2020-03-12 16:03 | NUR ---
PRONE: PRONED PATIENT, TOLERATED WELL. PATIENT IN NO ACUTE DISTRESS AND OR DISCOMFORT.
--- NOTE | 2020-03-12 16:30 | NUR ---
Witnessed morphine drip infusing at 6 mg/hr.
--- NOTE | 2020-03-12 16:30 | NUR ---
Witnessed diprivan infusing at 35 mcgs/kg/min.
[2020-03-12] MEDS: cefTRIAXone 1 GM in D5W 50 ML IV SCH (16:32)
--- NOTE | 2020-03-12 17:00 | NUR ---
Witnessed morphine drip infusing at 7 mg/hr.
--- NOTE | 2020-03-12 17:23 | NUR ---
Witnessed morphine drip infusing at 8 mg/hr.
--- NOTE | 2020-03-12 17:25 | NUR ---
RT NOTES FIO2 TO 0.80 per titration order. No adverse reactions noted
--- NOTE | 2020-03-12 17:43 | NUR ---
SPUTUM CX: RT AWARE OF CULTURES NEEDING TO BE COLLECTED.
[2020-03-12] MEDS: MONTELUKAST 10 MG TABLET PO SCH (18:25)
[2020-03-12] MEDS: PIPERACILLIN/TAZO 2.25G/DEX-IS 50 ML IV SCH ×2 (18:26→23:32)
[2020-03-12] MEDS: AZITHROMYCIN 500 MG in NS 250 ML IV SCH (18:26)
--- NOTE | 2020-03-12 18:48 | NUR ---
CLOSING NOTE: PATIENT CARES ENDORSED TO NOC NURSE VIA SBAR REPORT, PATIENT CALM IN BED IN NO ACUTE DISTRESS AND OR DISCOMFORT. BED IN LOWEST LOCKED POSITION.
--- NOTE | 2020-03-12 19:50 | NUR ---
rt notes 1950 titrated FIO2 to 70%, pt saturation 99%, HR 90, tolerating changes. will continue to monitor pt. no resp distress at this time. RN Ab aware.
[2020-03-12] MEDS: NOREPINEPHRINE BITARTRATE 4 MG in NS 246 ML IV PRN (23:29)
--- NOTE | 2020-03-12 23:45 | NUR ---
rt notes 2345 titrated FIO2 to 60%, pt saturation 99%, HR 95, tolerating changes. will continue to monitor pt. no resp distress at this time. RN Ab aware. Unproning pt at 0400am.
[2020-03-13] VITALS (35 sets, daily range): BP systolic 89–157
--- NOTE | 2020-03-13 04:00 | NUR ---
RT NOTES 0400 pt unproned. prior unproning, sxn'd oral/ett. pt on 60% fio2, post unproning saturation 98-99%, HR 94. ETT still at 23cm LL(taped). no resp distress noted. will continue to monitor pt.
[2020-03-13 06:33] LABS: HEMATOCRIT 32.1 % (36-48); HEMOGLOBIN 9.9 g/dL (12.0-16.0); MEAN CORPUSCULAR HEMOGLOBIN 33 pg (27-31); MEAN CORPUSCULAR HGB CONC 31 % (32-36); MEAN CORPUSCULAR VOLUME 105 fL (79.0-98.0); PLATELET COUNT (AUTO) 175 K/uL (130-430); RED BLOOD CELL COUNT(AUTO) 3.05 MIL/uL (4.2-6.2); RED CELL DISTRIBUTION WIDTH 15.6 % (9.0-15.0)
[2020-03-13 06:38] LABS: ALBUMIN 2.2 g/dL (3.4-4.8); C-REACTIVE PROTEIN QUANT 6.8 mg/dL (0-0.5); CREATININE 2.17 mg/dL (0.55-1.30); TOTAL BILIRUBIN 0.6 mg/dL (0.0-1.0)
[2020-03-13] MEDS: LEVOTHYROXINE SODIUM 0.05 MG TABLET PO SCH (06:40)
[2020-03-13] MEDS: PIPERACILLIN/TAZO 2.25G/DEX-IS 50 ML IV SCH ×3 (06:40→17:01)
[2020-03-13] MEDS: methylPREDNISolone SOD SUCC 40 MG/ML VIAL IVP SCH ×3 (06:40→17:01)
[2020-03-13 07:08] LABS: INR 1.2 (0.8-1.2); PROTHROMBIN TIME 11.9 SECS (9.5-12.5)
--- NOTE | 2020-03-13 07:19 | NUR ---
Opening note Received report from NOC RN. All cares assumed, patient in bed in lowest locked position.
[2020-03-13 07:25] LABS: POTASSIUM 5.7 mmol/L (3.5-5.1)
[2020-03-13] MEDS: ALBUTEROL MDI INHALATION 8 GM INH INH SCH ×2 (07:29→19:59)
--- NOTE | 2020-03-13 07:35 | NUR ---
RT NOTES FIO2 to 50% per titration order
--- NOTE | 2020-03-13 07:37 | NUR ---
FIO2: PER RT FIO2 DECREASED TO 50%, PATIENT TOLERATING AT THIS TIME.
[2020-03-13] MEDS: ASCORBIC ACID 500 MG TABLET PO SCH (08:03)
[2020-03-13] MEDS: ALLOPURINOL 300 MG TABLET (ZYLOPRIM) PO SCH (08:03)
[2020-03-13] MEDS: SIMVASTATIN 10 MG TABLET PO SCH (08:03)
[2020-03-13] MEDS: CHOLECALCIFEROL (VITAMIN D3) 2,000 UNIT TABLET PO SCH (08:03)
[2020-03-13] MEDS: AMIODARONE HCL 200 MG TABLET PO SCH (08:03)
[2020-03-13] MEDS: amLODIPine BESYLATE 5 MG TABLET PO SCH (08:04)
[2020-03-13] MEDS: NACL 0.9% 1,000 ML IV SCH ×2 (08:05→23:33)
[2020-03-13] MEDS: PROPOFOL DRIP 100 ML IV PRN (08:27)
--- NOTE | 2020-03-13 08:45 | NUR ---
DR. BERMEO: MD AT BEDSIDE, NEW ORDERS RV'VD FOR PROTONIX AND QUADRUPLE STRENGTH LEVOPHED. MD TO PLACE ORDERS, CHARGE AWARE.
[2020-03-13] MEDS ORDERED: NOREPINEPHRINE 4 MG/4 ML VIAL IV ONE (08:47)
[2020-03-13] MEDS: NOREPINEPHRINE BITARTRATE 4 MG in NS 246 ML IV PRN (08:59)
[2020-03-13] MEDS: PANTOPRAZOLE SODIUM 40 MG TAB PO SCH (09:16)
[2020-03-13 09:18] LABS: WHITE BLOOD COUNT (AUTO) 30.9 K/uL (4.8-10.8)
--- NOTE | 2020-03-13 09:18 | NUR ---
WBC RESULT: PAGED DR. MCCRARY FOR WBC RESULT OF 30.9, PENDING RETURN CALL.
[2020-03-13 09:23] LABS: ERYTHROCYTE SEDIMENTATION RATE 38 MM/HR (0-20)
--- NOTE | 2020-03-13 09:40 | NUR ---
DR. MCCRARY: SPOKE WITH DR. MCCRARY VIA PHONE, HE IS AWARE OF WBC RESULTS. NO NEW ORDERS AT THIS TIME.
--- NOTE | 2020-03-13 10:36 | NUR ---
FAMILY: SPOKE WITH DAUGHTER ON PHONE, UPDATE GIVEN. ALL QUESTIONS ANSWERED AT THIS TIME. WILL NOTIFY DAUGHTER OF ANY CHANGES. DAUGHTER ASKED TO CALL HER ON HER CELL AT [phone] (LINUS)
[2020-03-13] MEDS: MORPHINE I.V. DRIP 100 ML IV PRN (10:50)
[2020-03-13] MEDS: INSULIN LISPRO SLIDING SCALE 100 UNITS/ML VIAL (humaLOG) SUBCUT PRN ×2 (10:59→17:12)
--- NOTE | 2020-03-13 12:00 | NUR ---
RN ROUNDS: PATIENT REPOSITIONED, ORAL CARE PROVIDED, PATIENT TOLERATED WELL. BED IN LOWEST LOCKED POSITION ALL SAFETY PRECAUTIONS IN PLACE.
[2020-03-13] MEDS: ENOXAPARIN SODIUM 80 MG/0.8 ML SYRINGE SUBCUT SCH (13:36)
--- NOTE | 2020-03-13 14:04 | NUR ---
RN ROUNDS: PATIENT REPOSITIONED, TOLERATED WELL. SKIN REMAINS INTACT WITH NO POSTERIOR BREAKDOWN NOTED. ECCHYMOSIS NOTED TO LEFT AC, PREVIOUS SITE OF PIV.
--- NOTE | 2020-03-13 14:10 | NUR ---
PRONE: PATIENT PRONED WITH ASSISTANCE OF ADDITIONAL STAFF, PATIENT TOLERATED WELL.
[2020-03-13 14:16] LABS: ATYPICAL LYMPHOCYTES % 0 % (0-0); BAND % (MANUAL) 3 % (0-6); BASOPHILS % (MANUAL) 0 % (0-2); EOSINOPHILS % (MANUAL) 0 % (0-7); LYMPHOCYTES % (MANUAL) 5 % (20-46); MONOCYTES % (MANUAL) 4 % (0-11)
--- NOTE | 2020-03-13 14:20 | NUR ---
RT NOTES Assisted in proning pt. ETT remains secure. No resistance noted when sxn catheter was advanced. Will monitor pt.
[2020-03-13] MEDS: MIDAZOLAM HCL IN 0.9 % NACL/PF 50 ML IV PRN (14:57)
[2020-03-13] MEDS: NOREPINEPHRINE BITARTRATE 16 MG in D5W 234 ML IV PRN (14:58)
--- NOTE | 2020-03-13 15:14 | NUR ---
DR. COPELAND: AT BEDSIDE, CONSULT ORDER PLACED FOR DR. PHOENIX R/T LOW OUTPUT. PEEP DECREASED TO 12 BY MD, WILL MAKE RT AWARE.
--- NOTE | 2020-03-13 15:17 | NUR ---
CONSULT NEPHRO. CONSULTING MD: DR. PHOENIX SPOKE TO: DIALED: [phone] ORDERED BY: DR. COPELAND
--- NOTE | 2020-03-13 15:19 | NUR ---
NEPHRO: SPOKE WITH DR. PHOENIX, HE STATED HE WILL ROUND ON PATIENT R/T LOW URINE OUTPUT AND ELEVATED BUN / CREAT LEVELS.
--- NOTE | 2020-03-13 15:21 | NUR ---
FAMILY: CONSENT RC;VD VERIFIED BY TWO NURSES FOR MARIAN CATHETER, AND HEMODIALYSIS.
--- NOTE | 2020-03-13 15:40 | NUR ---
RT NOTES PEEP changed to [address] Valnete. made aware of last ABG was post intubation, Dr ordered ABG for tomorrow in AM
[2020-03-13] MEDS: MONTELUKAST 10 MG TABLET PO SCH (17:01)
[2020-03-13] MEDS: AZITHROMYCIN 500 MG in NS 250 ML IV SCH (17:03)
--- NOTE | 2020-03-13 17:15 | NUR ---
RT NOTES Repositioned head, ETT remains secure. No resistance noted when sxn catheter was advanced.
[2020-03-13] MEDS ORDERED: SODIUM POLYSTYRENE SULFONATE 15 GM/60 ML UDBTL PO ONE (18:00)
[2020-03-13] MEDS ORDERED: VASOPRESSIN 20 UNITS in NS 99 ML IV PRN (18:00)
--- NOTE | 2020-03-13 18:38 | NUR ---
DR. PHOENIX: MD AT BEDSIDE ASSESSING PATIENT, NEW ORDERS RC'VD AND PLACED BY .
--- NOTE | 2020-03-13 18:49 | NUR ---
FAMILY: SPOKE TO DAUGHTER, VERBAL UPDATE GIVEN. ALL QUESTIONS ANSWERED.
--- NOTE | 2020-03-13 19:30 | NUR ---
Opening note Received report and assumed care. Patient in isolation room for Covid19. Vent to ETT in place tolerating settings of AC 16. Reported patient has low urine output and may require hemodialysis once blood pressure stable Patient currently positioned prone. will continue to monitor as per unit protocol.
--- NOTE | 2020-03-13 20:30 | NUR ---
Assessment completed. Patient repositioned as per prone protocol. will continue to monitor.
[2020-03-14] VITALS (34 sets, daily range): BP systolic 88–151
[2020-03-14] MEDS: PIPERACILLIN/TAZO 2.25G/DEX-IS 50 ML IV SCH ×5 (00:09→23:19)
[2020-03-14] MEDS: methylPREDNISolone SOD SUCC 40 MG/ML VIAL IVP SCH ×5 (00:09→23:22)
[2020-03-14] MEDS: PROPOFOL DRIP 100 ML IV PRN ×3 (00:53→20:02)
[2020-03-14] MEDS: NOREPINEPHRINE BITARTRATE 16 MG in D5W 234 ML IV PRN ×2 (01:16→20:00)
[2020-03-14] MEDS: MORPHINE I.V. DRIP 100 ML IV PRN ×2 (01:49→16:00)
--- NOTE | 2020-03-14 01:55 | NUR ---
RT NOTES 0155 REPOSITIONED HEAD TO RIGHT SIDE, SXN CATHETER NO OBSTRUCTION. NO RESP DISTRESS NOTED. WILL CONTINUE TO MONITOR PT.
--- NOTE | 2020-03-14 04:00 | NUR ---
Supine Patient was placed supine as per protocol and with RT at bedside.
--- NOTE | 2020-03-14 04:30 | NUR ---
rt notes 0430 pt supine'd. post supine sxn'd ett/oral. changed hme, no resp distress noted. saturation 96%. ett still at 23lipline. REJI Berger at bedside.
[2020-03-14] MEDS: LEVOTHYROXINE SODIUM 0.05 MG TABLET PO SCH (06:30)
[2020-03-14] MEDS: INSULIN LISPRO SLIDING SCALE 100 UNITS/ML VIAL (humaLOG) SUBCUT PRN ×3 (06:40→22:07)
[2020-03-14] MEDS: ALBUTEROL MDI INHALATION 8 GM INH INH SCH ×2 (07:11→19:59)
--- NOTE | 2020-03-14 07:30 | NUR ---
Opening Received report from endorsing RN. Pt sedated, intubated, on multiple drips. No acute distress noted. No walters output noted. Pt scheduled for dialysis catheter placement and dialysis today. Consents signed in chart.
[2020-03-14] MEDS: ALLOPURINOL 300 MG TABLET (ZYLOPRIM) PO SCH (08:56)
[2020-03-14] MEDS: PANTOPRAZOLE SODIUM 40 MG TAB PO SCH (08:56)
[2020-03-14] MEDS: SIMVASTATIN 10 MG TABLET PO SCH (08:56)
[2020-03-14] MEDS: amLODIPine BESYLATE 5 MG TABLET PO SCH (09:00)
[2020-03-14] MEDS: AMIODARONE HCL 200 MG TABLET PO SCH (09:00)
[2020-03-14] MEDS ORDERED: INSULIN GLARGINE 100 UNITS/ML 10 ML VIAL SUBCUT SCH (09:00)
[2020-03-14] MEDS: ASCORBIC ACID 500 MG TABLET PO SCH (09:03)
[2020-03-14] MEDS: CHOLECALCIFEROL (VITAMIN D3) 2,000 UNIT TABLET PO SCH (09:03)
[2020-03-14] MEDS ORDERED: HEPARIN 25,000 UNITS in 250 ML PREMIX IV PRN (09:45)
[2020-03-14] MEDS ORDERED: HEPARIN SODIUM,PORCINE 2000 UNITS/0.4 ML BOLUS IVP PRN (09:45)
[2020-03-14] MEDS ORDERED: *HEPARIN PER PHARMACY XX ONE (09:45)
[2020-03-14] MEDS ORDERED: HEPARIN SODIUM,PORCINE 3000 UNITS/0.6 ML BOLUS IVP PRN (09:45)
[2020-03-14] MEDS ORDERED: HEPARIN SODIUM,PORCINE 5,000 UNITS/ML VIAL IVP ONE (10:00)
--- NOTE | 2020-03-14 10:30 | NUR ---
Dialysis catheter placed by Dr. Valente at bedside. Dressing applied, verified placement with xray. Bleeding controlled. Pt tolerated well.
[2020-03-14 11:23] LABS: BASOPHILS # (AUTO) 0.1 K/uL (0.0-0.2); BASOPHILS % (AUTO) 0.5 % (0.0-2.0); HEMATOCRIT 32.3 % (36-48); HEMOGLOBIN 9.7 g/dL (12.0-16.0); LYMPHOCYTES # (AUTO) 1.6 K/uL (1.0-5.5); LYMPHOCYTES % (AUTO) 6.1 % (20.5-51.5); MEAN CORPUSCULAR HEMOGLOBIN 33 pg (27-31); MEAN CORPUSCULAR HGB CONC 30 % (32-36); MEAN CORPUSCULAR VOLUME 109 fL (79.0-98.0); MONOCYTES # (AUTO) 1.1 K/uL (0.0-1.0); MONOCYTES % (AUTO) 4.1 % (1.7-9.3); NEUTROPHILS # (AUTO) 22.9 K/uL (1.8-7.7); NEUTROPHILS % (AUTO) 89.3 % (40.0-70.0); PLATELET COUNT (AUTO) 128 K/uL (130-430); RED BLOOD CELL COUNT(AUTO) 2.96 MIL/uL (4.2-6.2); RED CELL DISTRIBUTION WIDTH 15.9 % (9.0-15.0); WHITE BLOOD COUNT (AUTO) 25.6 K/uL (4.8-10.8)
--- NOTE | 2020-03-14 11:53 | NUR ---
RT NOTE @1107 DESATURATION NOTED TO 83% ON FiO2 60% AND INCREASED TO 75% SATING 90%
--- NOTE | 2020-03-14 12:00 | NUR ---
Informed pt's daughter Ethy regarding pt's rings on edematous hands, states OK to cut off and return them to family. Updates also given.
[2020-03-14] MEDS: NACL 0.9% 1,000 ML IV SCH (13:00)
[2020-03-14 13:18] LABS: CREATININE 3.64 mg/dL (0.55-1.30); POTASSIUM 4.5 mmol/L (3.5-5.1)
[2020-03-14 13:24] LABS: TOTAL BILIRUBIN 1.2 mg/dL (0.0-1.0)
[2020-03-14 13:31] LABS: CALCIUM 6.7 mg/dL (8.4-11.0)
--- NOTE | 2020-03-14 13:40 | NUR ---
CHANGED VENT SETTINGS TO AC20, VT500 PER MIN.
[2020-03-14] MEDS ORDERED: SODIUM BICARBONATE 8.4% JECT 50 MEQ/50 ML SYRINGE ONE ×2 (13:44→13:48)
[2020-03-14] MEDS ORDERED: SODIUM BICARBONATE 8.4% JECT 50 MEQ/50 ML SYRINGE IVP ONE ×2 (13:45)
--- NOTE | 2020-03-14 14:00 | NUR ---
Proning on hold for now due to scheduled dialysis
[2020-03-14] MEDS ORDERED: CALCIUM GLUCONATE 1 GM in NS 100 ML IV ONE (14:30)
--- NOTE | 2020-03-14 15:30 | NUR ---
Witness Witness Yamilex RN titrate Diprivan to 30 mcg/kg/min
--- NOTE | 2020-03-14 16:00 | NUR ---
Witness Witness Yamilex RN titrate Diprivan to 25 mcg/kg/min
--- NOTE | 2020-03-14 16:20 | NUR ---
CHANGED VENT SETTINGS TO AC26, FIO2 90% PER MIN.
--- NOTE | 2020-03-14 17:30 | NUR ---
Witness Witness Yamilex RN titrate Heparin to 1300 Units/hr
[2020-03-14] MEDS: MONTELUKAST 10 MG TABLET PO SCH (18:00)
--- NOTE | 2020-03-14 19:27 | NUR ---
Endorsed plan of care to RN
--- NOTE | 2020-03-14 19:30 | NUR ---
Opening note Received report from AM RN. All cares assumed, patient in bed in lowest locked position.
--- NOTE | 2020-03-14 20:58 | NUR ---
C-DIFF: SPECIMEN COLLECTED AND BROUGHT TO LAB
--- NOTE | 2020-03-14 21:00 | NUR ---
BLOOD SUGAR: BS 450 VIA GLUCOMETER, COVERED WITH 14 UNITS HUMALOG PER PROTOCOL, MONITORING AT THIS TIME.
--- NOTE | 2020-03-14 21:57 | NUR ---
DIALYSIS: REAMER HAND AT BEDSIDE, CONTINUING TO MONITOR AT THIS TIME.
[2020-03-14] MEDS ORDERED: HEPARIN SODIUM, PORCINE 10,000 UNITS/ 10 ML VIAL MC PRN (22:15)
--- NOTE | 2020-03-14 22:17 | NUR ---
FAMILY: SPOKE WITH DAUGHTER, VERBAL UPDATE GIVEN VIA PHONE. ALL QUESTIONS ANSWERED. NO CONCERNS AT THIS TIME.
[2020-03-14] MEDS ORDERED: HEPARIN SODIUM,PORCINE 5,000 UNITS/ML VIAL ONE (23:18)
--- NOTE | 2020-03-14 23:27 | NUR ---
LEVOPHED: LEVOPHED INCREASED TO ASSIST WITH MAINTAINING BLOOD PRESSURE.
[2020-03-15] VITALS (28 sets, daily range): BP systolic 66–139
--- NOTE | 2020-03-15 00:13 | NUR ---
DIALYSIS: 1.7 LITERS REMOVED PER DIALYSIS NURSE. PATIENT TOLERATED WELL, LEVOPHED DECREASED TO 0.15, PATIENT MAINTAINING BLOOD PRESSURE 152/79. WILL CONTINUE TO MONITOR FOR CHANGES.
[2020-03-15] MEDS: PROPOFOL DRIP 100 ML IV PRN ×3 (01:33→21:43)
[2020-03-15] MEDS: NOREPINEPHRINE BITARTRATE 16 MG in D5W 234 ML IV PRN (01:59)
[2020-03-15] MEDS: MORPHINE I.V. DRIP 100 ML IV PRN ×2 (02:00→21:42)
[2020-03-15] MEDS: NACL 0.9% 1,000 ML IV SCH ×2 (02:11→17:36)
--- NOTE | 2020-03-15 02:30 | NUR ---
rt notes 0230 re-taped pt ett. 7.0lipline. chikis breath sounds heard. no resp distress noted. RN Tayler aware. saturation 100%. HR 82. will continue to monitor pt.
--- NOTE | 2020-03-15 04:21 | NUR ---
RN ROUNDS: PATIENT REPOSITIONED, ORAL CARE PROVIDED, PATIENT TOLERATED WELL. BED IN LOWEST LOCKED POSITION ALL SAFETY PRECAUTIONS IN PLACE.
--- NOTE | 2020-03-15 05:00 | NUR ---
RT NOTES 0500 ASSISTED IN PRONING PATIENT, PRIOR PRONING SUCTIONED PATIENT ORAL/ETT. ETT @23cm LIP LINE POST PRONING SATS 100% HR 85 RR 26. ETT PATENT/SECURE. NO RESPIRATORY DISTRESS NOTED. ORAL SECRETIONS NOTED SMALL/THIN/FRESH BLOOD. RN MADONNA AWARE AND AT THE BEDSIDE.
--- NOTE | 2020-03-15 05:00 | NUR ---
PRONE: PATIENT PRONED WITH ASSISTANCE OF ADDITIONAL STAFF, PATIENT TOLERATED WELL.
[2020-03-15] MEDS: methylPREDNISolone SOD SUCC 40 MG/ML VIAL IVP SCH ×3 (05:09→18:26)
[2020-03-15] MEDS: PIPERACILLIN/TAZO 2.25G/DEX-IS 50 ML IV SCH ×3 (05:09→18:26)
[2020-03-15] MEDS: INSULIN LISPRO SLIDING SCALE 100 UNITS/ML VIAL (humaLOG) SUBCUT PRN (05:15)
[2020-03-15 06:12] LABS: BASOPHILS # (AUTO) 0.1 K/uL (0.0-0.2); BASOPHILS % (AUTO) 0.5 % (0.0-2.0); EOSINOPHILS % (AUTO) 0.1 % (0.0-4.0); HEMATOCRIT 28.1 % (36-48); HEMOGLOBIN 9.1 g/dL (12.0-16.0); LYMPHOCYTES # (AUTO) 0.5 K/uL (1.0-5.5); MEAN CORPUSCULAR HEMOGLOBIN 33 pg (27-31); MEAN CORPUSCULAR HGB CONC 32 % (32-36); MEAN CORPUSCULAR VOLUME 100 fL (79.0-98.0); MONOCYTES # (AUTO) 0.5 K/uL (0.0-1.0); NEUTROPHILS # (AUTO) 16.2 K/uL (1.8-7.7); NEUTROPHILS % (AUTO) 93.4 % (40.0-70.0); PLATELET COUNT (AUTO) 81 K/uL (130-430); RED CELL DISTRIBUTION WIDTH 14.8 % (9.0-15.0); WHITE BLOOD COUNT (AUTO) 17.4 K/uL (4.8-10.8)
--- NOTE | 2020-03-15 06:16 | NUR ---
RN Rounds Patient remains sedated in bed, no signs of distress noted. scant amount of blood tinged secretions noted from mouth, area assessed no visual trauma noted. monitoring at this time.
[2020-03-15 06:21] LABS: C-REACTIVE PROTEIN QUANT 6.4 mg/dL (0-0.5)
[2020-03-15 06:27] LABS: CREATININE 3.27 mg/dL (0.55-1.30); POTASSIUM 3.5 mmol/L (3.5-5.1)
[2020-03-15 06:30] LABS: CALCIUM 6.9 mg/dL (8.4-11.0)
--- NOTE | 2020-03-15 06:40 | NUR ---
PAGE: DR. MIN KOLB FOR CRITICAL LAB OF 6.9 CALCIUM. PENDING RETURN CALL.
[2020-03-15] MEDS: LEVOTHYROXINE SODIUM 0.05 MG TABLET PO SCH (07:00)
[2020-03-15] MEDS: ALBUTEROL MDI INHALATION 8 GM INH INH SCH ×2 (07:12→20:55)
--- NOTE | 2020-03-15 07:30 | NUR ---
Received patient and endorsed report from [facility] shift nurse. Side rails x 3 up. Call light with in reach.
[2020-03-15 08:24] LABS: ERYTHROCYTE SEDIMENTATION RATE 17 MM/HR (0-20)
[2020-03-15] MEDS ORDERED: INSULIN GLARGINE 100 UNITS/ML 10 ML VIAL SUBCUT SCH (09:00)
[2020-03-15] MEDS: PANTOPRAZOLE SODIUM 40 MG TAB PO SCH (09:48)
[2020-03-15] MEDS: ASCORBIC ACID 500 MG TABLET PO SCH (09:48)
[2020-03-15] MEDS: SIMVASTATIN 10 MG TABLET PO SCH (09:49)
[2020-03-15] MEDS: CHOLECALCIFEROL (VITAMIN D3) 2,000 UNIT TABLET PO SCH (09:49)
[2020-03-15] MEDS: ALLOPURINOL 300 MG TABLET (ZYLOPRIM) PO SCH (09:49)
[2020-03-15] MEDS: AMIODARONE HCL 200 MG TABLET PO SCH (09:50)
[2020-03-15] MEDS: INSULIN GLARGINE 100 UNITS/ML 10 ML VIAL SUBCUT SCH ×2 (09:51→21:36)
[2020-03-15] MEDS: amLODIPine BESYLATE 5 MG TABLET PO SCH (09:51)
[2020-03-15] MEDS: VASOPRESSIN 20 UNITS in NS 99 ML IV PRN (10:30)
[2020-03-15] MEDS ORDERED: DEXTROSE 50% JECT 50 ML DISP.SYRIN IVP PRN (10:45)
[2020-03-15] MEDS: MIDAZOLAM HCL IN 0.9 % NACL/PF 50 ML IV PRN (10:52)
--- NOTE | 2020-03-15 11:45 | NUR ---
RT NOTE: 1145 FiO2 decreased to 80%. Pt tolerating change well. RN made aware. Addendum: 03/15/20 at 1214 by Dianelys Acharya RT Amended: Links added.
--- NOTE | 2020-03-15 12:25 | NUR ---
Reported to MD Valente patient's blood sugar range in the 400s of this morning BMP. New order for patient to start insulin drip with finger glucose checks every 2 hours. Also informed that multiple phlebotomists have attempted to recieve lab draw for PTT but unsuccessful. Orders placed.
--- NOTE | 2020-03-15 12:43 | NUR ---
Witness Witness Cynthia MENDOZA placing Heparin on Hold.
--- NOTE | 2020-03-15 13:25 | NUR ---
RT NOTE: 1325 FiO2 titrated to 70%. Pt tolerating well. RN made aware. Addendum: 03/15/20 at 1343 by Dianelys Acharya RT Amended: Links added.
[2020-03-15] MEDS: INSULIN REGULAR, HUMAN 100 UNITS in NS 99 ML IV PRN ×2 (14:58)
--- NOTE | 2020-03-15 16:49 | NUR ---
Nutrition F/U Admitting Diagnosis COVID-19 Pneumonia Reviewed Pertinent Medical/Surgical Hx Medical Record Medical History Comment: COVID-19 Pneumonia, Sepsis 2/2 UTI, VMN, Acute Respiratory Distress per MD notes. PMH: DM, HTN, Hypothyroidism. SARS-CoV-2 Rapid 03/08 Positive Subjective Information: RD bedside visit deferred d/t isolation precautions and PPE conservation efforts. RD spoke w/ pt's primary RN via phone call. RN reported that pt had dialysis today, and has been in prone position since 0500, and has been receiving Vital HP at 10 ml/hr while prone (normally 16 hours/day) and Vital HP at 45 ml/hr while supine (8 hours/day). RN reported that pt has had 2 loose stools today, and also has high BG -- now receiving insulin drip which started today. She also reported that pt is receiving 100 ml of water flush Q6h. RD offered banana flakes (Banatrol) to help bulk up stool w/ prebiotic fibers. Pt may benefit from increased TF rate for optimal nutrition. Current Diet Order/Nutrition Support: Vital HP at 45 ml/hr, Free Water Flush: 100 via NGT x3 days Prone positioning, TF runs at 10 ml/hr (16 hours/day): 160 kcal, 14 gm protein, and 134 ml free water Supine positioning, TF runs at 45 ml/hr (8 hours/day): 360 kcal, 32 gm protein, and 301 ml free water Total EN support/day (w/ propofol infusion at 10.9 ml/hr (288 kcal/day)): 808 kcal/day, 46 gm protein/day, and 435 ml free water/day Meets: 51% of lower end of estimated caloric needs and 53% of lower end of estimated protein needs Pertinent Medications: norepinephrine, propofol at 10.9 ml/hr (288 kcal/day), VIT D3, VIT C, zinc sulfate, SSI, insulin drip Pertinent Labs: Na 141 WNL (improved), BG 426 H, BUN 54 H, CRE 3.27 H, POC BG 407 H, WBC 17.4 H Skin Integrity Comment: Curt scale: 11; no PIs noted; non-pitting bilateral generalized edema noted Estimated Energy Expenditure (kcals/day) 0816-8666 Kcal/day (22-25 kcal/kg ABW for critical illness, on vent and pressors, BMI < 30) Estimated Protein Required (g/day) 87-145gm/day (1.2-2 gm/kg ABW for critical illness, on vent, BMI < 30) Estimated Fluid Required (l/day) 7269-4716/day (1ml/kcal/day for maintenance) Problem/Etiology/Signs/Symptoms Inadequate PO intake r/t pulmonary dysfunction, intubation, NPO status AEB pt intubated 03/11, sedated, on vent, and NPO, a/ w EN initiation per MD. *ongoing, however, now receiving EN support Altered nutrition related labs r/t endocrine dysfunction AEB elevated BG. *ongoing Compromised GI function related to possible EN intolerance as evidenced by loose stools. *new Expected Outcomes/Goals Monitor initiation and tolerance of EN support w/ goal of pt meeting more than 75% of estimated nutritional needs, labs trending WNL, normal GI function, skin integrity/wt maintenance. Dietitian Recommendations *Recommend Vital AF 1.2 at 95 ml/hr (while supine 8 hours/day) or 10 ml/hr (while prone 16 hours/day), Banatrol BID, Free Water Flush: 100 ml Q6h via NGT Total EN support provides (propofol infusion at 10.9 ml/hr (288 kcal/day)): 1392 kcal/day, 69 gm protein/day, and 1146 ml free water/day Meets: 87% of lower end of estimated caloric needs and 79% of lower end of estimated protein needs Follow Up High Risk: F/U in 2-3 days
--- NOTE | 2020-03-15 17:11 | NUR ---
Dietitian Recommendations *Recommend Vital AF 1.2 at 95 ml/hr (while supine 8 hours/day) or 10 ml/hr (while prone 16 hours/day), Banatrol BID, Free Water Flush: 100 ml Q6h via NGT Total EN support provides (propofol infusion at 10.9 ml/hr (288 kcal/day)): 1392 kcal/day, 69 gm protein/day, and 1146 ml free water/day Meets: 87% of lower end of estimated caloric needs and 79% of lower end of estimated protein needs LP, RD Please refer to Nutrition F/U for details.
[2020-03-15] MEDS: MONTELUKAST 10 MG TABLET PO SCH (18:26)
--- NOTE | 2020-03-15 19:35 | NUR ---
Opening note Received report from AM RN. All cares assumed, patient in bed in lowest locked position.
--- NOTE | 2020-03-15 21:18 | NUR ---
PAGED DR. MIN MONTEMAYOR [employer] PAGER [phone]
--- NOTE | 2020-03-15 21:30 | NUR ---
DR. MONTEMAYOR: SPOKE WITH DR. MONTEMAYOR UPDATE GIVEN ON BLOOD PRESSURE, NEOSYN ADDED NEW ORDER. ORDER PLACED AND TRANSCRIBED. CHARGE AWARE.
--- NOTE | 2020-03-15 21:35 | NUR ---
INSULIN DRIP I radha Lester RN decrease the insulin drip rate to 4 units/HR.
--- NOTE | 2020-03-15 22:00 | NUR ---
INCREASED FIO2 TO 100% DUE TO PT DESAT 70'S AND DECREASED BP.
[2020-03-15] MEDS ORDERED: PHENYLEPHRINE HCL 10 MG/ML VIAL (NEOSYNEPHRINE) ONE (22:01)
[2020-03-15] MEDS: PHENYLEPHRINE HCL 50 MG in NS 245 ML IV PRN (22:09)
--- NOTE | 2020-03-15 22:25 | NUR ---
NEOSYN: MEDICATION STARTED AT 0.5 MCG PER PROTOCOL. BLOOD PRESSURE REMAINS UNREADABLE. LEGS ELEVATED, WILL CONTIONUE TO OBTAIN BLOOD PRESSURE READING. CHARGE AWARE.
--- NOTE | 2020-03-15 22:41 | NUR ---
FAMILY: SPOKE WITH DAUGHTER, DAUGHTER AWARE OF CURRENT STATUS OF PATIENT. FAMILY APPROVED TO COME TO HOSPITAL. FAIRGROUND OPERATOR APPROVED, CHARGE AWARE.
--- NOTE | 2020-03-15 23:00 | NUR ---
FAMILY: FAMILY AT BEDSIDE, STATUS ON PATIENT UPDATE GIVEN. DISCUSSED CODE STATUS WITH FAMILY, FAMILY STATES THEY WANT TO KEEP PATIENT A FULL CODE.
--- NOTE | 2020-03-15 23:15 | NUR ---
BELONGINGS: PATIENT JEWELRY GIVEN TO DAUGHTER LINUS, SHE HAS TAKEN RESPONSIBILITY OF ITEMS. ITEMS TAKEN HOME WITH FAMILY.
--- NOTE | 2020-03-15 23:20 | NUR ---
BLOOD PRESSURE: UNABLE TO OBTAIN BLOOD PRESSURE READINGS, BUE / BLE COLD TO TOUCH. ADDITIONAL BLANKETS APPLIED, WILL CONTINUE TO RETRIEVE BLOOD PRESSURE. CHARGE AT BEDSIDE ASSISTING WITH NO SUCCESS.
[2020-03-16] VITALS (11 sets, daily range): BP systolic 0–138
--- NOTE | 2020-03-16 | NUR ---
2320 CHANGED PEEP TO +8 DUE TO PT BP DECREASED.
--- NOTE | 2020-03-16 00:15 | NUR ---
OXYGEN SATURATION: LOW SATURATION NOTED, 74-76%. FIO2 REMAINS AT 100% AT THIS TIME. RT AT BEDSIDE.
[2020-03-16] MEDS: PIPERACILLIN/TAZO 2.25G/DEX-IS 50 ML IV SCH ×3 (00:30→12:00)
[2020-03-16] MEDS: methylPREDNISolone SOD SUCC 40 MG/ML VIAL IVP SCH ×3 (00:34→12:00)
--- NOTE | 2020-03-16 01:20 | NUR ---
OXYGEN SATURATION INCREASED: OXYGEN SATURATION READING 95% ON MONITOR FIO2 REMAINS AT 100%.
[2020-03-16] MEDS ORDERED: NOREPINEPHRINE 4 MG/4 ML VIAL IV ONE ×3 (01:40→13:11)
--- NOTE | 2020-03-16 01:45 | NUR ---
WITNESS Witnessed Tayler MENDOZA titrate Insulin to 3 units/hr.
--- NOTE | 2020-03-16 02:26 | NUR ---
TURNING: PATIENT UNSTABLE TO TURN, BLOOD PRESSURE UNSTABLE.
[2020-03-16] MEDS: NOREPINEPHRINE BITARTRATE 16 MG in D5W 234 ML IV PRN ×3 (03:02→14:32)
--- NOTE | 2020-03-16 03:15 | NUR ---
witness joan MENDOZA titrate Diprivan to 5 mcg/kg/min and Versed to 1 mg.
--- NOTE | 2020-03-16 03:28 | NUR ---
BLOOD PRESSURE: ONE READING OBTAINED OF 96/76. CHARGE AWARE. PATIENT ON MAX DOSE WITH NEOSYN, LEVO, AND VASOPRESSIN. LEGS ELEVATED WITH PILLOWS.
--- NOTE | 2020-03-16 05:06 | NUR ---
LABS: LAB TACH UNABLE TO DRAW BLOOD ON PATIENT, ATTEMPTED 4 STICKS. RN ATTEMPTED 2 STICKS WITH NO SUCCESS.
--- NOTE | 2020-03-16 05:37 | NUR ---
WITNESS Witnessed Tayler MENDOZA titrate insulin to 2 units/hr
--- NOTE | 2020-03-16 06:06 | NUR ---
RN ROUNDS: PATIENT REMAINS UNSTABLE, UNABLE TO READ BLOOD PRESSURE. HOLDING POSITIONING DUE TO UNSTABLE VITALS. CHARGE AWARE.
[2020-03-16] MEDS: LEVOTHYROXINE SODIUM 0.05 MG TABLET PO SCH (06:19)
[2020-03-16] MEDS ORDERED: PHENYLEPHRINE HCL 10 MG/ML VIAL (NEOSYNEPHRINE) ONE (06:35)
[2020-03-16] MEDS: PHENYLEPHRINE HCL 50 MG in NS 245 ML IV PRN ×3 (06:41→14:35)
--- NOTE | 2020-03-16 06:48 | NUR ---
BLOOD PRESSURE: BLOOD PRESSURE REMAINS UNREADABLE. CHARGE AWARE.
--- NOTE | 2020-03-16 06:54 | NUR ---
CLOSING NOTE: PATIENT CARES ENDORSED TO AM NURSE VIA SBAR REPORT
--- NOTE | 2020-03-16 07:30 | NUR ---
Received patient and endorsed report from [facility] shift nurse. Side rails x 3 up. Call light with in reach.
[2020-03-16] MEDS: ALBUTEROL MDI INHALATION 8 GM INH INH SCH (07:50)
[2020-03-16] MEDS: ALLOPURINOL 300 MG TABLET (ZYLOPRIM) PO SCH (08:19)
[2020-03-16] MEDS: PANTOPRAZOLE SODIUM 40 MG TAB PO SCH (08:19)
[2020-03-16] MEDS: CHOLECALCIFEROL (VITAMIN D3) 2,000 UNIT TABLET PO SCH (08:19)
[2020-03-16] MEDS: ASCORBIC ACID 500 MG TABLET PO SCH (08:19)
[2020-03-16] MEDS: SIMVASTATIN 10 MG TABLET PO SCH (08:19)
[2020-03-16] MEDS: amLODIPine BESYLATE 5 MG TABLET PO SCH (08:20)
[2020-03-16] MEDS: AMIODARONE HCL 200 MG TABLET PO SCH (08:20)
[2020-03-16] MEDS: NACL 0.9% 1,000 ML IV SCH (08:33)
[2020-03-16] MEDS: INSULIN GLARGINE 100 UNITS/ML 10 ML VIAL SUBCUT SCH (08:34)
[2020-03-16] MEDS: VASOPRESSIN 20 UNITS in NS 99 ML IV PRN ×2 (09:50→14:37)
--- NOTE | 2020-03-16 10:05 | NUR ---
PAGED PAGED [facility] AT [phone].
[2020-03-16] MEDS ORDERED: NACL 0.9% 1,000 ML IV ONE (10:45)
[2020-03-16] MEDS: DOPamine PREMIX 250 ML IV PRN ×2 (11:15→14:33)
--- NOTE | 2020-03-16 11:31 | NUR ---
Reported to MD Valente blood pressure hasn't been able to read. New order to start dopamine drip with 1 liter normal saline bolus. Orders placed.
[2020-03-16] MEDS: INSULIN REGULAR, HUMAN 100 UNITS in NS 99 ML IV PRN ×2 (13:30)
[2020-03-16] MEDS ORDERED: ATROPINE SULFATE 1 MG/10 ML SYRINGE IVP ONE (14:45)
--- NOTE | 2020-03-16 14:50 | NUR ---
RT NOTES Responded to code blue, CPR in progress. RT Marisa already at bedside, pt remained on the vent, vent settings was changed to PC to meet pt's ideal Vt w/ rate of 10 100% O2, per CDC guideline on covid + pt via Dr Ballard's savita. @[address] Mary.
--- NOTE | 2020-03-16 15:08 | NUR ---
CONSULTATION PAGED TO INFORM PATIENT INFECTIOUS DISEASE REINA PAREDES PAGED AT [phone] SPOKE WITH ANETTE INFORMED THEM PATIENT AT 1503. RENAL DOCTOR MARILYN DE LEON PAGED AT [phone] SPOKE WITH ANETTE INFORMED THEM PATIENT AT 1503.
--- NOTE | 2020-03-16 15:10 | NUR ---
Called MD Law at 1445 in regards to heart rate going into the 40s, new order 1 mg of atropine IVP STAT. At 1447, code blue called due to asystole present on monitor with no pulse present, CPR started. MD Mary from ER, charge nurse, ICU staff at bedside. ACLS measures unsuccessful and pronounced at 1459 by ER MD Mary. Verification with second nurse. Unable to obtain blood pressure.
--- NOTE | 2020-03-16 16:24 | NUR ---
SS notes. Code Blue Patient in ICU. DIGITAL EDITOR spoke with Rn. Marie re. a full body hold. Rn called family re. pts. and if they had a mortuary they were going to work with. Rn notified DIGITAL EDITOR that the family will work on this matter [facility]. A few minutes later DIGITAL EDITOR recieved a call back from Rn. Marie stating the family is trying to find a mortuary becasue they are aware of a full body hold at [facility]. DIGITAL EDITOR thanked her for her input.
[2020-03-16] MEDS ORDERED: SODIUM BICARBONATE 8.4% JECT 50 MEQ/50 ML SYRINGE IVP ONE (17:05)
[2020-03-16] MEDS ORDERED: EPINEPHrine JECT 0.1 MG/ML SYR IVP ONE (17:05)
[2020-03-16] MEDS ORDERED: CALCIUM CHLORIDE 1 GM/10 ML DISP.SYRIN (14 mEq Ca++/SYR) IV ONE (17:05)
--- NOTE | 2020-03-16 17:15 | NUR ---
Family outside of door to say final goodbye to patient. Signed release form for Nikunj Dominguez [facility] chose by daughter Tianna. Explained to daughter Tianna that 2 gold rings on patient unable to come off due to swelling and will be released from mortuary. Family stated thank you for care.
--- NOTE | 2020-03-16 18:45 | NUR ---
Nikunj Dominguez [facility] picked up patient via [facility]. Left facility at this time.
[2020-03-17] MEDS ORDERED: PANTOPRAZOLE SODIUM 40 MG/VIAL (PROTONIX) IVP SCH (09:00)
== END 2020-03-16 14:59 | disposition expired | DRG 870 ==
LOC: SED 08:56 → STU 13:57 → SIC 03-10 15:21
PROVIDERS: ADMIT General Practice; ATTEND General Practice
PROC: XW13325 Transfusion of Convalescent Plasma (Nonautologous) into Peripheral Vein, Percutaneous Approach, New Technology Group 5 (ICD-10-PCS; 2020-03-08)
PROC: 5A09457 Assistance with Respiratory Ventilation, 24-96 Consecutive Hours, Continuous Positive Airway Pressure (ICD-10-PCS; 2020-03-10)
PROC: 5A1955Z Respiratory Ventilation, Greater than 96 Consecutive Hours (ICD-10-PCS; principal; 2020-03-12)
PROC: 02HV33Z Insertion of Infusion Device into Superior Vena Cava, Percutaneous Approach (ICD-10-PCS; 2020-03-12)
PROC: 0BH17EZ Insertion of Endotracheal Airway into Trachea, Via Natural or Artificial Opening (ICD-10-PCS; 2020-03-12)
PROC: 02HV33Z Insertion of Infusion Device into Superior Vena Cava, Percutaneous Approach (ICD-10-PCS; 2020-03-14)
PROC: B548ZZA Ultrasonography of Superior Vena Cava, Guidance (ICD-10-PCS; 2020-03-14)
PROC: 5A1D70Z Performance of Urinary Filtration, Intermittent, Less than 6 Hours Per Day (ICD-10-PCS; 2020-03-14)
PROC: 5A1D70Z Performance of Urinary Filtration, Intermittent, Less than 6 Hours Per Day (ICD-10-PCS; 2020-03-15)
DX: A41.9 Sepsis, unspecified organism (principal); N17.0 Acute kidney failure with tubular necrosis; J12.89 Other viral pneumonia; U07.1 COVID-19; J96.01 Acute respiratory failure with hypoxia; R65.21 Severe sepsis with septic shock; N39.0 Urinary tract infection, site not specified; E44.0 Moderate protein-calorie malnutrition; D68.59 Other primary thrombophilia; E87.2 Acidosis; K21.9 Gastro-esophageal reflux disease without esophagitis; E78.5 Hyperlipidemia, unspecified; E03.9 Hypothyroidism, unspecified; I48.91 Unspecified atrial fibrillation; E87.5 Hyperkalemia; I12.9 Hypertensive chronic kidney disease with stage 1 through stage 4 chronic kidney disease, or unspecified chronic kidney disease; I46.9 Cardiac arrest, cause unspecified; N18.9 Chronic kidney disease, unspecified; E11.22 Type 2 diabetes mellitus with diabetic chronic kidney disease; Z79.899 Other long term (current) drug therapy; Z68.29 Body mass index [BMI] 29.0-29.9, adult
CPT/HCPCS: 36415; 36430; 36600; 71045; 80048; 80053; 81000-TC; 82550-TC; 82728; 82803-TC; 82962; 83036; 83605; 83615-TC; 83735-TC; 83880; 84484; 85007; 85025; 85027; 85379; 85384-TC; 85610-TC; 85651-TC; 85730-TC; 86140; 86886; 86900; 86901; 87040-TC; 87070-TC; 87081; 87086; 87205-TC; 87230-TC; 92950; 93005; 94002; 94003; 94640; 94660; 94664; 94760; 96365; 96366; 96367; 96372; 99285; G0378; J0171; J0330; J0456; J0461; J0610; J0696; J1030; J1265; J1644; J1650; J1815; J2060; J2270; J2370; J2543; J2704; J2930; J3010; J3370; J3490; J7050; J7060; J8540; P9017; Q0144